=== PATIENT | female | born 1990 | race Caucasian/White ===

== ENCOUNTER 2017-10-07 16:07 | Emergency (ER) | payer OTHER ==
[2017-10-07] MEDS ORDERED: Proparacaine 0.5% Ophth Soln 15 ML Bottle EYERT ONE (16:20)
--- NOTE | 2017-10-07 16:59 | EDM.PDOC ---
ED HPI GENERAL MEDICAL PROBLEM - General Chief Complaint: Eye Problems Stated Complaint: RIGHT EYE PAIN Time Seen by Provider: 10/07/17 16:27 Source of Information: Reports: Patient, RN Notes Reviewed - History of Present Illness INITIAL COMMENTS - FREE TEXT/NARRATIVE: onset of R eye pain about 3 AM today, 14 hrs ago. She was traveling, napping in passenger seat, awakened with sharp L eye pain that has not gone away. Does not wear contacts. NO known injury Right Eye Pain Score (Numeric/FACES): 9 - Related Data Allergies Allergy/AdvReac Type Severity Reaction Status Date / Time No Known Allergies Allergy Verified 10/07/17 16:21 Home Meds: Home Meds Sertraline HCl [Zoloft] 200 mg PO DAILY 10/07/17 [History] Past Medical History Respiratory History: Reports: Pneumonia, Recurrent Gastrointestinal History: Reports: Other (See Below) Other Gastrointestinal History: eating disorder Psychiatric History: Reports: Anxiety, Depression Social & Family History - Tobacco Use Smoking Status *Q: Current Every Day Smoker Years of Tobacco use: 4 Packs/Tins Daily: 0.3 - Caffeine Use Caffeine Use: Reports: Coffee, Tea - Recreational Drug Use Recreational Drug Use: No ED ROS GENERAL - Review of Systems Review Of Systems: See Below Constitutional: Denies: Fever, Chills HEENT: Reports: Eye Pain. Denies: Eye Discharge (no crusting or mattering) Respiratory: Reports: No Symptoms Cardiovascular: Reports: No Symptoms GI/Abdominal: Denies: Nausea, Vomiting Musculoskeletal: Reports: No Symptoms Skin: Reports: No Symptoms. Denies: Rash Neurological: Denies: Headache ED EXAM GENERAL W FULL EYE - Physical Exam Exam: See Below General Appearance: Alert, Moderate Distress Eye Exam: Bilateral Eye: PERRL Visual Acuity (R) 20/: 40 Visual Acuity (L) 20/: 30 Conjunctiva & Sclera: Right: Injected (mild) Throat/Mouth: Normal Inspection Respiratory/Chest: No Respiratory Distress Skin Exam: Warm, Dry, Normal Color, No Rash Course - Vital Signs Last Recorded V/S: Last Vital Signs Temp 97.8 F 10/07/17 16:32 Pulse 73 10/07/17 16:32 Resp 20 10/07/17 16:32 BP 113/80 10/07/17 16:32 Pulse Ox 100 10/07/17 16:32 - Orders/Labs/Meds Meds: Medications Discontinued Medications Generic Name Dose Route Start Last Admin Trade Name Piedad PRN Reason Stop Dose Admin Proparacaine HCl 2 ml 10/07/17 16:20 10/07/17 16:25 Proparacaine 0.5% Ophth Soln EYERT 10/07/17 16:21 2 drop ONETIME ONE Administration - Re-Assessments/Exams Free Text/Narrative Re-Assessment/Exam: 10/07/17 17:09 no foreign body visible on exam, no apparent abrasion, will irrigate with 250 cc NS prior to discharge. Departure - Departure Time of Disposition: 16:56 Disposition: Home, Self-Care 01 Condition: Fair Clinical Impression: Foreign body, eye Qualifiers: Encounter type: initial encounter Laterality: left Qualified Code(s): T15.92XA - Foreign body on external eye, part unspecified, left eye, initial encounter - Discharge Information Referrals: PCP,Not In Area [Primary Care Provider] - Forms: ED Department Discharge Additional Instructions: you may alternate tylenol and ibuprofen or aleve as needed for discomfort. This will take 1 to 2 days to completely heal, Follow up with one of our Optometrists if discomfort not completely gone by Monday as expected.
== END 2017-10-07 17:15 | disposition home or self-care (01) ==
LOC: JD.ED 16:07
DX: T15.92XA Foreign body on external eye, part unspecified, left eye, initial encounter (principal); F17.210 Nicotine dependence, cigarettes, uncomplicated; Z79.899 Other long term (current) drug therapy
CPT/HCPCS: 99283